=== PATIENT | female | born 1980 | race Caucasian/White ===

== ENCOUNTER 2016-08-08 10:52 | Inpatient (IN) | payer OTHER ==
[~2016-08-08] VITALS: Ht 165.1 cm; Wt 76.2 kg
[2016-08-08 11:06] VITALS: Ht 165.1 cm; Wt 76.2 kg
[2016-08-08 11:07] VITALS: BP 133/81; PULSE 74; RESP 20
[2016-08-08 12:10] LABS: ADD UMIC YES; URINE BILIRUBIN (Dip) NEGATIVE (NEGATIVE); URINE BLOOD (Dip) 1+ (NEGATIVE); URINE COLOR LT. YELLOW (YELLOW); URINE GLUCOSE (Dip) NEGATIVE (NEGATIVE); URINE KETONES (Dip) NEGATIVE (NEGATIVE); URINE LEUKOCYTE ESTERASE (Dip) TRACE (NEGATIVE); URINE NITRITE (Dip) NEGATIVE (NEGATIVE); URINE TOTAL PROTEIN (Dip) NEGATIVE (NEGATIVE); URINE UROBILINOGEN (Dip) 0.2 E.U./dL (0.1-1.0)
[2016-08-08 12:20] LABS: BACTERIA,URINE RARE; URINE RBCS 0-2 /HPF (0)
--- NOTE | 2016-08-08 13:08 | RADRPT ---
PROCEDURE: OB ultrasound for biophysical profile CLINICAL INDICATION: Biophysical profile. . TECHNIQUE: Multiple sonographic images of the pelvis were obtained. Transabdominal views are obta ined. COMPARISON: 08/05/2016 FINDINGS: Single intrauterine gestation. Presentation: Cephalic. Placenta: Fundal - posterior - left No evidence of placental abruption. No evidence of placenta previa is seen. Cervix is not well visualized. breathing movement = 2/2 tone = 2/2 motion = 2/2 CARSON = 2/2 CARSON = 12.0 cm heart rate: 137 beats per minute IMPRESSION: Single intrauterine gestation. Biophysical profile 10/19 No evidence of placental abruption or previa is seen. Cervix is not well visualized. Transvaginal examination can be obtained for further evaluation. RPTAT: AADD .Kosta Javed MD, MD Date Time Electronically viewed and signed by .Kosta Javed MD, on 08/08/2016 13:08 .B/
[2016-08-08] MEDS: LACTATED RINGER'S 1,000 ML IV SCH ×4 (13:38→23:02)
[2016-08-08] MEDS ORDERED: BETAMET NA PHOS/AC(6 MG/ML) 5ML INJ IM ONE (14:00)
[2016-08-08 14:09] LABS: ADD SCAN DIFF NO
[2016-08-08 14:11] LABS: BASOPHILS % 0.3 % (0.0-2.0); EOSINOPHILS # 0.2 10^3/ul (0.0-0.5); HEMATOCRIT 40.6 % (37.0-47.0); HEMOGLOBIN 14.2 g/dl (12.0-16.0); LYMPHOCYTES # 1.5 10^3/ul (0.8-2.9); LYMPHOCYTES % 15.5 % (15.0-51.0); MEAN CORPUSCULAR HEMOGLOBIN 31.8 pg (29.0-33.0); MEAN PLATELET VOLUME 10.6 fl (7.4-10.4); MONOCYTE # 0.5 10^3/ul (0.3-0.9); MONOCYTES % 5.5 % (0.0-11.0); NEUTROPHIL # 7.1 10^3/ul (1.6-7.5); NEUTROPHILS % 76.2 % (39.0-77.0); PLATELET COUNT 231 10^3/UL (140-415); RED BLOOD COUNT 4.46 10^6/ul (4.20-5.40); RED CELL DISTRIBUTION WIDTH 13.5 % (11.5-14.5); WHITE BLOOD COUNT 9.4 10^3/ul (4.8-10.8)
--- NOTE | 2016-08-08 14:49 | RADRPT ---
PROCEDURE: US Limited OB. CLINICAL INDICATION: Estimated weight. TECHNIQUE: Multiple sonographic images of the pelvis were obtained. Transabdominal imaging only w as performed. COMPARISON: None. FINDINGS: Cardiac activity is present with 150 beats per minute. Presentation is vertex. Measurements were made in order to determine age. The results are as follows: BPD = 34 w 1 d AC = 34 w 3 d FL = 34 w 1 d Estimated weight is 2428 g. The placenta is fundal, with no evidence of previa. IMPRESSION: 1. Single, live intrauterine with estimated age of 34 weeks, 2 days. 2. Estimated weight: 2428 g, 48.6%. RPTAT: EE .Randy Ansari MD, MD Date Time Electronically viewed and signed by .Randy Ansari MD, on 08/08/2016 14:53 .C/
[2016-08-08] MEDS: CLINDAMYCIN 900 MG/D5W (PMX) 50 ML IVPB SCH ×2 (15:08→22:12)
[2016-08-08] MEDS ORDERED: MISOPROSTOL 200 MCG TAB PR PRN (15:30)
[2016-08-08] MEDS ORDERED: CARBOPROST 250 MCG INJ IM PRN (15:30)
[2016-08-08] MEDS ORDERED: METHYLERGONOVINE 0.2 MG INJ IM PRN (15:30)
[2016-08-08] MEDS ORDERED: LIDOCAINE 1% (MPF) 30 ML INJ INJ PRN (15:30)
[2016-08-08] MEDS ORDERED: OXYTOCIN 30 UNITS/LR 500 ML IV PRN (15:30)
[2016-08-08] MEDS ORDERED: OXYTOCIN 30 UNITS/LR 500 ML IV SCH ×2 (15:30)
[2016-08-08] MEDS ORDERED: BUTORPHANOL 2 MG INJ IV PRN (15:30)
--- NOTE | 2016-08-08 15:51 | TRIAGE ---
OB Triage Datetime Report Generated by CPN: 08/08/2016 15:50 Datetime: 08/08/2016 15:43 Vaginal Exam Dilatation (cms): 3.0 Effacement (%): 90 Station: -2 Exam By: KELSEY Vaginal Bleeding: Normal Show Cervix, Consistency: Soft Cervix, Position: Midposition Datetime: 08/08/2016 15:42 Membrane Status: Ruptured Membranes Rupture Method: Spontaneous Amniotic Fluid Color: Clear Amniotic Fluid Amount: Moderate Datetime: 08/08/2016 15:27 Assessment Type: Admission Assessment Vaginal Bleeding: None; Moderate Maternal Assessment Level of Consciousness: Fully Conscious DTR's/Clonus: DTRs 2+; No Clonus Headache: Denies Blurred Vision: No Respiratory Effort: Unlabored; Regular Rhythm; Equal Expansion Breath Sounds, Left: Clear and Equal Breath Sounds, Right: Clear and Equal Nausea/Vomiting: Denies RUQ Epigastric Pain: Denies Lower Extremities Edema: None Degree: None Upper Extremities Edema: None Degree: None Facial Edema: None Fall Risk Assessment History of Falling: (0) No Secondary Diagnosis: (0) No Ambulatory Aid: (0) Bedrest/Nurse Assist IV Therapy: (0) No Gait: (0) Normal/Bedrest/Immobile Mental Status: (0) Oriented to Own Ability Fall Score: 0 Fall Risk Score Definition: No Risk: No action required Labor Evaluation Frequency: 5-6 Duration (sec)2399: 60 Quality: Moderate Pattern: Normal: <= 5 Contractions in 10 Minutes Resting Tone [place]: Relaxed Heart Rate FHR Baseline Rate: 155 Variability: Moderate 6-25 bpm Accelerations: 15X15 Decelerations: Variable Category: Category I Pain Assessment Pain Scale: 10 Pain Presence: Intermittent Pain Type: Contraction Pain Location: Abdomen Pain Goal: 4 Vaginal Exam Dilatation (cms): 2.0 Effacement (%): 90 Station: -2 Membrane Status: Intact Datetime: 08/08/2016 14:55 Labor Evaluation Frequency: IRREG Monitor Mode: External Duration (sec)2399: 60 Quality: Moderate Pattern: Normal: <= 5 Contractions in 10 Minutes Resting Tone [place]: Relaxed Heart Rate FHR Baseline Rate: 135 Monitor Mode: External US FHR Baseline Changes: No Baseline Change Variability: Moderate 6-25 bpm Accelerations: 15X15 Decelerations: Variable Category: Category I Pain Assessment Pain Scale: 7 Pain Presence: Intermittent Pain Type: Contraction Pain Location: Abdomen Vaginal Exam Dilatation (cms): 2.0 Effacement (%): 90 Station: -2 Exam By: OZZIE BLANC Vaginal Bleeding: Moderate Cervix, Consistency: Soft Cervix, Position: Midposition Presentation 'A': Cephalic Datetime: 08/08/2016 14:03 Labor Evaluation Frequency: IRREG Monitor Mode: External Duration (sec)2399: 60 Quality: Moderate Pattern: Normal: <= 5 Contractions in 10 Minutes Resting Tone [place]: Relaxed Heart Rate FHR Baseline Rate: 130 FHR Baseline Changes: No Baseline Change Variability: Moderate 6-25 bpm Accelerations: 15X15 Decelerations: None Category: Category I Pain Assessment Pain Scale: 6 Pain Presence: Intermittent Pain Type: Contraction Pain Location: Abdomen Datetime: 08/08/2016 13:29 Heart Rate FHR Baseline Rate: 135 Monitor Mode: External US FHR Baseline Changes: No Baseline Change Variability: Moderate 6-25 bpm Accelerations: 15X15 Decelerations: None Category: Category I Pain Assessment Pain Scale: 6 Pain Presence: Intermittent Pain Type: Contraction Pain Location: Abdomen Membrane Status: Intact Datetime: 08/08/2016 13:15 Vaginal Exam Dilatation (cms): 1.0 Effacement (%): 80 Station: -3 Exam By: OZZIE BLANC Vaginal Bleeding: Moderate Cervix, Consistency: Moderate Cervix, Position: Midposition Datetime: 08/08/2016 13:01 Labor Evaluation Frequency: IRREG Monitor Mode: External Duration (sec)2399: 60 Quality: Moderate Pattern: Normal: <= 5 Contractions in 10 Minutes Resting Tone [place]: Relaxed Heart Rate FHR Baseline Rate: 120 Monitor Mode: External US FHR Baseline Changes: No Baseline Change Variability: Moderate 6-25 bpm Accelerations: 15X15 Decelerations: None Category: Category I Pain Assessment Pain Scale: 4 Pain Presence: Intermittent Pain Type: Contraction Pain Location: Abdomen Membrane Status: Intact Datetime: 08/08/2016 11:56 Labor Evaluation Frequency: IRREG Monitor Mode: External Duration (sec)2399: 50 Quality: Mild Pattern: Normal: <= 5 Contractions in 10 Minutes Resting Tone [place]: Relaxed Heart Rate FHR Baseline Rate: 140 Monitor Mode: External US FHR Baseline Changes: No Baseline Change Variability: Moderate 6-25 bpm Accelerations: 15X15 Decelerations: None Category: Category I Pain Assessment Pain Scale: 4 Pain Presence: Intermittent Pain Type: Cramping Pain Location: Abdomen Membrane Status: Intact Datetime: 08/08/2016 11:41 Labor Evaluation Frequency: NONE AT THIS TIME Pattern: Normal: <= 5 Contractions in 10 Minutes Heart Rate FHR Baseline Rate: 145 Monitor Mode: External US FHR Baseline Changes: No Baseline Change Variability: Moderate 6-25 bpm Accelerations: 15X15 Decelerations: None Category: Category I Membrane Status: Intact Datetime: 08/08/2016 11:00 Time of Arrival: 08/08/2016 10:50 EGA: 34.2 Arrived By: Ambulatory Arrived From: Home Chief Complaint: VAG SPOTTING SINCE THIS MORNING Movement: Present Contractions: Denies/Absent Rupture of Membranes: Denies Vaginal Bleeding: Scant Vaginal Discharge: Denies Recent Sexual Intercouse: Denies Abdominal Trauma: Not Applicable Patient Complaints: Other Time Provider Notified: 08/01/2016 11:01 Provider Notified: DR RUTLEDGE Initial Plan: EFM,CALL DR RUTLEDGE Datetime: 08/08/2016 10:59 Maternal Assessment Level of Consciousness: Fully Conscious DTR's/Clonus: DTRs 2+; No Clonus Headache: Denies Blurred Vision: No Respiratory Effort: Unlabored; Regular Rhythm; Equal Expansion Breath Sounds, Left: Clear and Equal Breath Sounds, Right: Clear and Equal Nausea/Vomiting: Denies RUQ Epigastric Pain: Denies Facial Edema: None Temperature Route: Axillary Fall Risk Assessment History of Falling: (0) No Secondary Diagnosis: (0) No Ambulatory Aid: (0) Bedrest/Nurse Assist IV Therapy: (0) No Gait: (0) Normal/Bedrest/Immobile Mental Status: (0) Oriented to Own Ability Fall Score: 0 Fall Risk Score Definition: No Risk: No action required Datetime: 08/08/2016 10:56 Maternal Assessment Level of Consciousness: Fully Conscious DTR's/Clonus: DTRs 2+ Headache: Denies Blurred Vision: No Nausea/Vomiting: Denies RUQ Epigastric Pain: Denies Facial Edema: None Labor Evaluation Frequency: NONE AT THIS TIME Pattern: Normal: <= 5 Contractions in 10 Minutes Heart Rate FHR Baseline Rate: 140 Monitor Mode: External US FHR Baseline Changes: No Baseline Change Variability: Moderate 6-25 bpm Accelerations: 15X15 Decelerations: None Category: Category I Pain Assessment Pain Scale: 0 Pain Presence: None/Denies Membrane Status: Intact
[2016-08-08] MEDS ORDERED: LACTATED RINGER'S 1,000 ML IV PRN (16:00)
[2016-08-08 16:11] LABS: PT RATIO 1.1
[2016-08-08 16:19] LABS: PARTIAL THROMBOPLASTIN TIME 25.6 Sec (25.0-35.0)
[2016-08-08 16:31] LABS: INR 1.05; PROTIME 13.7 Sec (12.2-14.2)
[2016-08-08] MEDS ORDERED: FENTAnyl 2MCG/ML-ROPIV 0.2% 100 ML ONE (17:07)
--- NOTE | 2016-08-08 18:29 | HP ---
DATE OF ADMISSION: 08/08/2016 HISTORY OF PRESENT ILLNESS: The patient is a 35-year-old who presents at 34-1/2 weeks complai negar of bleeding and uterine contractions. A few hours after admission the patient had leakage of f luid confirmed to be PPROM. No nausea, vomiting, fevers, chills. PAST MEDICAL HISTORY: Chronic hypertension. PAST SURGICAL HISTORY: None. PHYSICAL EXAMINATION: VITAL SIGNS: Stable. OBSTETRICAL HISTORY: x4. Exam within normal limits. ASSESSMENT: 1. Category 1 tracing. 2. Intrauterine at 34 and 2/7. 3. The patient with premature rupture of membranes in active labor with bleeding. PLAN: The patient will be admitted for expectant management. The patient was started on betamethas one, clindamycin for GBS unknown and . At this point, expectant management will be observed. Dictated By: LAKISHA RUTLEDGE MD /NTS Conf#: [id number] DID#: [id number] CC: MARIALUISA RUSHING MD;*EndCC*
[2016-08-08] MEDS ORDERED: ACETAMINOPHEN 500 MG TAB PO PRN (20:30)
[2016-08-08] MEDS ORDERED: DIPHENHYDRAMINE 50 MG INJ IV PRN (20:30)
[2016-08-09] VITALS (7 sets, daily range): BP systolic 121–146; BP diastolic 67–91; PULSE 20–97; RESP 17–20
[2016-08-09] MEDS ORDERED: FENTAnyl 2MCG/ML-ROPIV 0.2% 100 ML BAG EPI SCH (01:00)
[2016-08-09] MEDS ORDERED: HYDROmorphONE 1 MG/ML SYG IV PRN ×2 (01:00)
[2016-08-09] MEDS ORDERED: NALOXONE (0.4 MG/ML) INJ IV PRN (01:00)
[2016-08-09] MEDS ORDERED: DIPHENHYDRAMINE 50 MG INJ IV PRN ×2 (01:00→03:00)
[2016-08-09] MEDS ORDERED: ONDANSETRON 4 MG INJ IV PRN ×2 (01:00→03:00)
--- NOTE | 2016-08-09 02:57 | LDN ---
Date/Time of Note Date/Time of Note DATE: 08/09/16 TIME: 02:53 Delivery Summary Pt progressed under epidural anesthesia with expectant management to complete and 0 station and had the urge to push. She pushed to an of a liveborn female infant weighing 2110g with Apgars of 8/9. While pushing, forebag noted and artificially ruptured with clear fluid. After delivery of the head, tight nuchal cord x3 was noted and cord was clamped, however fetus continued to deliver through nuchal cord and thus cord was reduced following delivery. The was placed on patient's abdomen and the cord was doubly clamped and cut and taken to the warmer for assessment by NICU team. A cord segment and cord blood was collected. The placenta then spontaneously delivered. Fundus noted to be firm. Vagina and perineum intact. Infant to NICU. Patient recovering in LDR. Weeks of Gestation 34 Placenta Delivered: Spontaneously Meconium: none Episiotomy: No Anesthesia type: Epidural Estimated blood loss: 250 Sponge & Needle done & correct: Yes All needle counts correct: Yes Any foreign bodies felt in the: No Problems: Delivery Information Sex Sex: female Apgars 1 Minute: 8 5 Minute: 9 Suctioning Nose & mouth suctioned at cesar: No Delee suction performed: No Umbilical Cord Umbilical cord with: 3 Vessels Cord presentations: nuchal cord Nuchal cord present X: 3 Cord Blood was obtained: Yes Mother & Baby Disposition Disposition Mom transferred to: Other () Baby to NICU: Yes (<35wks GA) JAYLEEN YEPEZ MD August 09, 2016 02:57
[2016-08-09] MEDS ORDERED: OXYTOCIN 30 UNITS/LR 500 ML IV PRN (03:00)
[2016-08-09] MEDS ORDERED: CARBOPROST 250 MCG INJ IM PRN (03:00)
[2016-08-09] MEDS ORDERED: MISOPROSTOL 200 MCG TAB PR PRN (03:00)
[2016-08-09] MEDS ORDERED: DIBUCAINE 1% 30 GM OINT PR PRN (03:00)
[2016-08-09] MEDS ORDERED: METHYLERGONOVINE 0.2 MG INJ IM PRN (03:00)
[2016-08-09] MEDS: IBUPROFEN 600 MG TAB PO SCH ×5 (03:00→23:16)
[2016-08-09] MEDS ORDERED: ACETAMINOPHEN 325 MG TAB PO PRN (03:00)
[2016-08-09] MEDS: BENZOCAINE 20% 56 ML SPRAY TOP PRN (04:46)
[2016-08-09] MEDS: LANOLIN 7 GM TUBE TOP PRN (04:47)
[2016-08-09] MEDS: LACTATED RINGER'S 1,000 ML IV* SCH ×2 (05:47→12:24)
[2016-08-09 07:19] LABS: ADD SCAN DIFF NO
[2016-08-09 07:29] LABS: BASOPHILS % 0.1 % (0.0-2.0); HEMATOCRIT 37.3 % (37.0-47.0); LYMPHOCYTES # 1.1 10^3/ul (0.8-2.9); LYMPHOCYTES % 7.4 % (15.0-51.0); MEAN CORPUSCULAR HEMOGLOBIN 31.6 pg (29.0-33.0); MEAN CORPUSCULAR HGB CONC 34.9 g/dl (32.0-37.0); MEAN CORPUSCULAR VOLUME 90.8 fl (82.0-101.0); MEAN PLATELET VOLUME 10.8 fl (7.4-10.4); MONOCYTES % 6.8 % (0.0-11.0); NEUTROPHIL # 12.2 10^3/ul (1.6-7.5); PLATELET COUNT 247 10^3/UL (140-415); RED BLOOD COUNT 4.11 10^6/ul (4.20-5.40); RED CELL DISTRIBUTION WIDTH 13.2 % (11.5-14.5); WHITE BLOOD COUNT 14.4 10^3/ul (4.8-10.8)
[2016-08-09] MEDS: SENNA/DOCUSATE NA (8.6MG/50MG) TAB PO PRN (12:32)
[2016-08-09 14:07] LABS: T3 UPTAKE 19.3 % (23.5-40.5)
[2016-08-09] MEDS: ACETAMINOPHEN/CODEINE #3 TAB PO PRN ×2 (15:53→23:17)
[2016-08-10 05:15] VITALS: BP 137/84; PULSE 64; RESP 20
[2016-08-10] MEDS: IBUPROFEN 600 MG TAB PO SCH ×4 (06:53→23:57)
[2016-08-10] MEDS: SENNA/DOCUSATE NA (8.6MG/50MG) TAB PO PRN (07:04)
[2016-08-10 07:48] VITALS: BP 124/83; PULSE 67; RESP 20
[2016-08-10 12:00] VITALS: BP 126/86; PULSE 78; RESP 18
--- NOTE | 2016-08-10 15:08 | RADRPT ---
Vent Rate: 102 bpm RR Interval: 0 msec IN Interval: 182 msec QRS Duration: 86 msec QT Interval: 362 msec QTC Interval: 471 msec P-R-T [place]: 41 - 52 - 36 degrees Sinus tachycardia Otherwise normal ECG Electronically Signed By: Bernardo Calabrese [id number]
[2016-08-10 15:30] VITALS: BP 128/86; PULSE 82; RESP 20
[2016-08-10 20:10] VITALS: BP 128/82; PULSE 74; RESP 18
[2016-08-11 04:00] VITALS: BP 139/87; PULSE 62; RESP 17
[2016-08-11] MEDS: IBUPROFEN 600 MG TAB PO SCH ×2 (06:11→14:25)
[2016-08-11 08:20] VITALS: BP 144/83; PULSE 63; RESP 16
[2016-08-11] MEDS: SENNA/DOCUSATE NA (8.6MG/50MG) TAB PO PRN (08:30)
[2016-08-11] MEDS ORDERED: DIPHTH/TET/ACEL PERTUSS (ADULT) 0.5 ML VIAL IM* ONE (09:00)
[2016-08-11 13:14] LABS: RUBELLA ANTIBODY - IGG 7.23 index
--- NOTE | 2016-08-11 14:07 | PD.PPDC ---
CARGO [facility]OKER Discharge Instruction Condition Patient Condition: Good Activity/Restrictions Activity: Normal Activity Restrictions: No Exercising No Lifting No Driving Follow-up Follow-up with Physician: 6 Return to clinic for [facility]TAIN Instructions: Fever greater than 101 Chills Worsening abdominal pain Excessive Vaginal Bleeding More than 2 pads per hour Unable to tolerate diet OB Instructions: Breast Tenderness Depression Blurried Vision Headache WENDY WOODWARD MD August 11, 2016 14:07
--- NOTE | 2016-08-11 14:18 | PN ---
Date/Time of Note Date/Time of Note DATE: 08/11/16 TIME: 14:15 OB Subjective Subjective Subjective Patient status post labor at 34 weeks and 2 days. Baby is in NICU. Pumping her breasts. Denies any symptoms. Vaginal bleeding in the amount of menses. Denies any headache, blurred vision, epigastric pain. Denies any dizziness, lightheadedness or any other symptoms. Patient desires to have bilateral tubal sterilization and 6 weeks . She has signed her consent in her visit on July 23, 2016. Denies any depressive symptoms. Urinated. OB Objective Objective Objective General appearance: Alert and oriented 4 patient does not appear to be in any acute distress. Abdomen: Soft, no fundal tenderness, fundus palpable about 1 cm below the umbilicus. Extremities: No calf tenderness, no click no edema no cords palpable. Negative Homans sign. Hematology - 72 Hrs Test 08/09/16 06:38 White Blood Count 14.410^3/ul (4.8-10.8) #H Red Blood Count 4.1110^6/ul (4.20-5.40) L Hemoglobin 13.0g/dl (12.0-16.0) Hematocrit 37.3% (37.0-47.0) Mean Corpuscular Volume 90.8fl (82.0-101.0) Mean Corpuscular Hemoglobin 31.6pg (29.0-33.0) Mean Corpuscular Hemoglobin Concent 34.9g/dl (32.0-37.0) Red Cell Distribution Width 13.2% (11.5-14.5) Platelet Count 14258^3/UL (140-415) Mean Platelet Volume 10.8fl (7.4-10.4) H Neutrophils % 85.0% (39.0-77.0) H Lymphocytes % 7.4% (15.0-51.0) L Monocytes % 6.8% (0.0-11.0) Eosinophils % 0.0% (0.0-7.0) Basophils % 0.1% (0.0-2.0) Nucleated Red Blood Cells % 0.0/100WBC (0.0-0.0) Neutrophils # 12.210^3/ul (1.6-7.5) H Lymphocytes # 1.110^3/ul (0.8-2.9) Monocytes # 1.010^3/ul (0.3-0.9) H Eosinophils # 0.010^3/ul (0.0-0.5) Basophils # 0.010^3/ul (0.0-0.1) Nucleated Red Blood Cells # 0.010^3/ul (0.0-0.0) Chemistry Test 08/09/16 06:38 Thyroid Stimulating Hormone (TSH) 0.186MIU/L (0.465-4.680) Free Thyroxine Index 3.36ug/ml (0.65-3.89) Thyroxine (T4) 17.4ug/dl (5.5-11.0) H Triiodothyronine (T3) Uptake 19.3% (23.5-40.5) L OB Assessment/Plan Other Assessment: Status post delivery at 34 weeks and 2 days Baby is in NICU due to prematurity Chronic hypertension. Mild. Blood pressures are not 130s-140s over 80s-90s. Asymptomatic. Denies any symptoms. day #2 Discharge home today Desires to have BTL. Consent signed on July 23, 2016. Patient to have her bilateral tubal sterilization scheduled through her OB clinic at 6 weeks . WENDY WOODWARD MD August 11, 2016 14:18
[2016-08-11] MEDS: LANOLIN 7 GM TUBE TOP PRN (14:30)
[2016-08-11] MEDS: BENZOCAINE 20% 56 ML SPRAY TOP PRN (14:30)
--- NOTE | 2016-08-11 16:10 | DS ---
Date/Time of Note Date/Time of Note DATE: 08/11/16 TIME: 16:10 Obstetrical Discharge Record Final Diagnosis Final Diagnosis: delivered Vaginal Delivery Obstetrical Delivery: Spontaneous Complications Augmentation: No Induction: No Rupture of Membranes: No Condition on Discharge Physical Assessment Voiding: Yes Bowel Movement: Yes Breast: Soft, non-tender Fundus: Firm Calf Tenderness: No Patient Condition: Good WENDY WOODWARD MD August 11, 2016 16:10 WENDY WOODWARD MD August 11, 2016 16:10
== END 2016-08-11 15:15 | disposition home or self-care (01) | DRG 775 ==
LOC: OBT 10:52 → L-D 10:53 → OBT 15:00 → L-D 15:00 → PP1 08-09 03:07
PROVIDERS: ADMIT Obstetrics & Gynecology; ATTEND Obstetrics & Gynecology
PROC: 10E0XZZ Delivery of Products of Conception, External Approach (ICD-10-PCS; principal; 2016-08-09)
DX: O60.14X0 Preterm labor third trimester with preterm delivery third trimester, not applicable or unspecified (principal); O16.4 Unspecified maternal hypertension, complicating childbirth; O69.81X0 Labor and delivery complicated by cord around neck, without compression, not applicable or unspecified; Z3A.34 34 weeks gestation of pregnancy; Z37.0 Single live birth
CPT/HCPCS: 36415; 62319; 76815; 76818; 81001; 84436; 84443; 84479; 85025; 85610; 85730; 86592; 86703; 86762; 86900; 86901; 87340; 88307; 90715; 93005; 96360; 99464; G0463; J0702; J1200; J2590; J3010; J7120

== ENCOUNTER 2017-02-01 06:20 | Day surgery (SDC) | payer OTHER ==
[~2017-02-01] VITALS: Ht 167.6 cm; Wt 69.3 kg
[2017-02-01] VITALS (9 sets, daily range): BP systolic 119–145; BP diastolic 73–84; PULSE 78–85; RESP 12–16; Ht 167.6 cm; Wt 69.3 kg
[2017-02-01] MEDS ORDERED: BUPIVACAINE 0.5%/EPI (SDV) 30 ML INJ ONE (06:45)
[2017-02-01] MEDS ORDERED: LACTATED RINGER'S 1,000 ML IV* SCH (07:30)
[2017-02-01] MEDS ORDERED: CLINDAMYCIN 900 MG/D5W (PMX) 50 ML IVPB SCH (07:30)
[2017-02-01 07:37] LABS: BASOPHILS % 0.7 % (0.0-2.0); EOSINOPHILS # 0.4 10^3/ul (0.0-0.5); HEMOGLOBIN 14.5 g/dl (12.0-16.0); LYMPHOCYTES # 1.8 10^3/ul (0.8-2.9); MEAN CORPUSCULAR HEMOGLOBIN 31.7 pg (29.0-33.0); MEAN CORPUSCULAR HGB CONC 35.4 g/dl (32.0-37.0); MEAN CORPUSCULAR VOLUME 89.5 fl (82.0-101.0); MEAN PLATELET VOLUME 10.5 fl (7.4-10.4); MONOCYTE # 0.5 10^3/ul (0.3-0.9); MONOCYTES % 8.6 % (0.0-11.0); NEUTROPHIL # 2.9 10^3/ul (1.6-7.5); NEUTROPHILS % 51.3 % (39.0-77.0); PLATELET COUNT 286 10^3/UL (140-415); RED BLOOD COUNT 4.58 10^6/ul (4.20-5.40); RED CELL DISTRIBUTION WIDTH 12.4 % (11.5-14.5); WHITE BLOOD COUNT 5.6 10^3/ul (4.8-10.8)
[2017-02-01] MEDS ORDERED: FENTAnyl 50 MCG/ML VIAL ONE (07:51)
[2017-02-01] MEDS ORDERED: MIDAZOLAM 1 MG/ML 2 ML INJ ONE (07:51)
[2017-02-01] MEDS ORDERED: ONDANSETRON 4 MG INJ IV PRN (08:00)
[2017-02-01] MEDS ORDERED: FENTAnyl 50 MCG/ML VIAL IV PRN (08:00)
[2017-02-01] MEDS ORDERED: HYDROmorphONE (0.2 MG/ML) 10ML SYG IV PRN ×2 (08:00)
[2017-02-01] MEDS ORDERED: LABETALOL HCL 20MG INJ IV PRN (08:00)
[2017-02-01] MEDS ORDERED: hydrALAzine 20 MG INJ IV PRN (08:00)
[2017-02-01] MEDS ORDERED: DIPHENHYDRAMINE 50 MG INJ IV PRN (08:00)
[2017-02-01] MEDS ORDERED: MEPERIDINE 25 MG INJ IV PRN (08:00)
[2017-02-01 08:06] LABS: PARTIAL THROMBOPLASTIN TIME 32.6 Sec (25.0-35.0)
[2017-02-01 08:12] LABS: INR 1.01; PROTIME 13.3 Sec (12.2-14.2)
[2017-02-01] MEDS ORDERED: LIDOCAINE 2% (SDV) 5 ML INJ ONE (08:44)
[2017-02-01] MEDS ORDERED: PROPOFOL 20 ML ONE (08:44)
[2017-02-01] MEDS ORDERED: CEFAZOLIN 1 GM INJ ONE (08:45)
[2017-02-01] MEDS ORDERED: CLINDAMYCIN 900 MG/D5W (PMX) 50 ML IVPB ONE (08:46)
[2017-02-01] MEDS ORDERED: ONDANSETRON 4 MG INJ ONE (08:46)
--- NOTE | 2017-02-01 09:36 | OPR ---
Date/Time of Note Date/Time of Note DATE: 02/01/17 TIME: 09:30 Operative Report Procedure Date: Feb 01, 2017 Preoperative Diagnosis Patient desires permanent sterilization. She declined Essure. She desires laparoscopic tubal fulguration. Postoperative Diagnosis Patient desires permanent sterilization. She declined Essure. She desires laparoscopic tubal fulguration. Operation/Procedure Performed Laparoscopic fulguration and transection of bilateral tubes. Surgeon see signature line Sas Developer none Anesthesia Type: general Estimated Blood Loss: none Transfusion none Specimen none Grafts/Implants none Tubes/Drains none Complications none Pt Condition Post Procedure: stable Disposition: PACU Procedure Description FINDINGS: Normal tubes, ovaries bilaterally. Normal uterus. CONSENT: Please see my preop H and P consent in the office for the consent process. DESCRIPTION OF PROCEDURE: She was taken to operating room and general anesthesia was induced. She was prepped and draped in the usual sterile fashion in dorsal lithotomy position. Surgical time-out was done. Anterior lip of the cervix was grasped using a single-tooth tenaculum, and a HUMI was inserted in normal fashion. The tenaculum was removed. There was no bleeding from the cervix. The patient already had a Sahni catheter as well. Gloves were changed. A 5 mm incision was developed inside the umbilicus. A blunt trocar was inserted in the normal fashion. Intraperitoneal position was confirmed using the laparoscope. Pneumoperitoneum was obtained. The patient was placed in Trendelenburg position. A second trocar was inserted under direct visualization of the laparoscope at the pubic hairline in the midline. A 5 cm mid ampullary region of the right tube was coagulated. Complete desiccation of the entire diameter of tube was visualized. The middle of the coagulated portion was cut. There was no bleeding. Same procedure was done on the contralateral side. All instruments removed under direct visualization of the laparoscope after pneumoperitoneum was released. There was no bleeding. Skin closed using 4-0 Monocryl. Then 10 mL 0.25% Marcaine with epinephrine was injected at the incision sites. HUMI was removed. There was no bleeding from the vagina. Patient tolerated the procedure well. MARIALUISA RUSHING MD Feb 01, 2017 09:36
[2017-02-01] MEDS ORDERED: OXYCODONE/ACETAMINOPHEN (5/325) TAB PO ONE (10:30)
--- NOTE | 2017-02-04 16:06 | RADRPT ---
Vent Rate: 71 bpm RR Interval: 0 msec HI Interval: 174 msec QRS Duration: 88 msec QT Interval: 420 msec QTC Interval: 456 msec P-R-T [place]: 29 - 50 - 62 degrees Normal sinus rhythm Normal ECG Electronically Signed By: Kyle Zhang [id number]
== END 2017-02-01 11:05 | disposition home or self-care (01) ==
LOC: SDS 06:20
PROVIDERS: ATTEND Specialist
DX: Z30.2 Encounter for sterilization (principal); I10 Essential (primary) hypertension; Z88.0 Allergy status to penicillin
CPT/HCPCS: 58600; 85025; 85610; 85730; 93005; J1170; J2250; J2405; J3010; Z7512; Z7610; J0690